=== PATIENT | female | born 1985 | race African-American/Black ===

== ENCOUNTER 2022-01-11 19:52 | Emergency (ER) | payer MEDICAID, SELFPAY ==
--- NOTE | ~2022-01-11 | XR_ITS ---
EXAMINATION: XR tibia fibula LT 2V INDICATION: Left leg pain TECHNIQUE: Two views of the left tibia and fibula are obtained. COMPARISON: None available FINDINGS: There is no fracture, dislocation, or subluxation. The bones, soft tissues, and joint space s are normal. IMPRESSION: 1. No acute osseous abnormality. Reviewed, dictated and finalized at location F.
--- NOTE | ~2022-01-11 | XR_ITS ---
EXAMINATION: XR lumbar spine 2-3V DATE: 01/11/2022 21:40 INDICATION: Low back pain TECHNIQUE: Anteroposterior and lateral views of the lumbar spine, and cone-down lateral view of the l umbosacral junction were obtained. COMPARISON: None. FINDINGS: There is no fracture, dislocation, or subluxation. The vertebral body heights, alignment, a nd intervertebral disc spaces are normal. The paravertebral soft tissues are unremarkable. IMPRESSION: 1. No acute osseous abnormality. Reviewed, dictated and finalized at location F.
--- NOTE | ~2022-01-11 | XR_ITS ---
EXAMINATION: XR foot LT min 3V DATE: 01/11/2022 21:40 INDICATION: Left foot pain TECHNIQUE: Dorsoplantar, lateral, and 2 oblique views of the left foot were obtained. COMPARISON: None. FINDINGS: There is no fracture, dislocation, or subluxation. There is mild osteoarthritis of multiple interphalangeal joints. The soft tissues are unremarkable. IMPRESSION: 1. No acute osseous abnormality. Reviewed, dictated and finalized at location F.
--- NOTE | ~2022-01-11 | CT_ITS ---
EXAMINATION: CT cervical spine wo con DATE: 01/11/2022 21:20 INDICATION: Neck pain TECHNIQUE: Computed tomography (CT) of the cervical spine was performed without intravenous contrast. The dose-length product (DLP) was 408.59 mGy-cm. Automated exposure control and iterative reconstruc tion technique were employed. COMPARISON: None FINDINGS: There is no fracture, dislocation, or subluxation. There is mild loss of intervertebral dis c space height at C5-6 with small anterior and posterior disc endplate osteophytes. The vertebral bod y heights are maintained. The odontoid is intact. The prevertebral soft tissues are normal. IMPRESSION: 1. Mild cervical spondylosis without acute findings. Reviewed, dictated and finalized at location F.
[2022-01-11 19:53] VITALS: BP 115/81; PULSE 75; RESP 16; TEMP 37.1; O2SAT 100
--- NOTE | 2022-01-11 20:43 | ED.LOWEXIN ---
HPI - Extremity Injury (Lower) General Chief Complaint: Extremity Injury, Lower Stated Complaint: LT LOWER LEG INJURY Time Seen by Provider: 01/11/22 20:03 Source: patient Mode of arrival: EMS History of Present Illness HPI Narrative: This is a 36-year-old female brought in by EMS, who presents complaining of left ankle pain, 6 out of 10, sharp, constant, after falling from approximately 3 to 4 feet. 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 Patient complains of immediate left ankle and left foreleg pain. She denies hitting her head or loss of consciousness. She states she neither stood nor walked after the incident at the recommendation of surrounding coworkers. She states she does not take anticoagulants, and has no chest pain or palpitations before or after the fall. Related Data Allergies Allergy/AdvReac Type Severity Reaction Status Date / Time No Known Allergies Allergy Verified 01/11/22 20:01 Review of Systems Review of Systems: CONSTITUTIONAL: Denies fever, chills, or sweats. EYES: Denies visual changes, redness, or discharge. CARDIOVASCULAR: Denies chest pain, palpitations, or edema. RESPIRATORY: Denies cough or dyspnea. GASTROINTESTINAL: Denies abdominal pain, nausea, vomiting, or diarrhea. GENITOURINARY: Denies dysuria or hematuria. SKIN: Denies rash or itching. MUSCULOSKELETAL: Left ankle pain, left foreleg pain, left lateral neck pain NEUROLOGIC: Denies headache, numbness, dizziness, or weakness. PSYCHIATRIC: Denies anxiety or depression. Exam Narrative: GENERAL: Well-appearing, well-nourished, and in no acute distress, wearing c-collar HEAD: Normocephalic, atraumatic. EYES: PERRLA and EOMI. ENT: Nares clear, no rhinorrhea or epistaxis. Mucous membranes moist. Oropharynx without tonsillar hypertrophy exudate or other lesions. NECK: Supple. Mild tenderness to palpation to the left paraspinal region. No midline tenderness or step-off, no adenopathy or masses. No carotid bruits or JVD CHEST: Clear to auscultation. No respiratory distress. No wheezes rales or rhonchi BACK: Tender to palpation over the lumbar spine without step-off or crepitus HEART: Regular rate and rhythm. No murmur heard. Normal peripheral pulses. ABDOMEN: Soft, nontender, nondistended, normal active bowel sounds. EXTREMITIES: Mild swelling noted to the lateral malleolus of the left ankle, tender to palpation in the same area, mild tenderness to palpation over the anterior aspect of the left foreleg, sensation intact, SKIN: Warm, dry, no rash. NEURO: No focal deficits. Alert and oriented x3. PSYCH: Normal mood and affect. Course Course Emergency Course: 22:10 - Imaging negative for fracture or dislocation. C-collar cleared by me. Will provide compression wrapping, crutch training and discharge with RICE therapy and NSAIDs. Vital Signs Vital signs: Vital Signs Temperature 98.8 F 01/11/22 19:53 Pulse Rate 75 01/11/22 19:53 Respiratory Rate 16 01/11/22 19:53 Blood Pressure 115/81 01/11/22 19:53 Pulse Oximetry 100 01/11/22 19:53 Oxygen Delivery Room Air 01/11/22 19:53 Temperature 98.8 F 01/11/22 19:53 Pulse Rate 75 01/11/22 19:53 Respiratory Rate 16 01/11/22 19:53 Blood Pressure 115/81 01/11/22 19:53 Pulse Oximetry 100 01/11/22 19:53 Oxygen Delivery Room Air 01/11/22 19:53 MDM - Extremity Injury (Lower) MDM Narrative Medical decision making narrative: Plan: test, imaging, pain control, reassess Imaging not concerning for fracture or dislocation in spine or extremities. C-collar cleared by me. Will discharge with rice, NSAIDs and a work note. Discussed findings and recommendations with the patient, who voices understanding and is comfortable with the plan. Discussed return emergency precautions including signs and symptoms of arrhythmia or spinal cord compression. All questions
[2022-01-11 21:35] LABS: Beta HCG Quantitative < 2.39 mIU/ML
[2022-01-11] MEDS: HYDROcodone/acetaminophen (*CRX) 5-325 MG TABLET 1 TAB PO (21:57)
[2022-01-11] MEDS: KETOROLAC 15 MG/ML VIAL (*BKC) IV PUSH (23:07)
[2022-01-11 23:41] VITALS: PULSE 74; RESP 18; O2SAT 98
== END 2022-01-11 23:43 | disposition home or self-care (01) ==
PROVIDERS: Emergency Provider Preventive Medicine Aerospace Medicine
DX: S93.402A Sprain of unspecified ligament of left ankle, initial encounter (principal); S96.912A Strain of unspecified muscle and tendon at ankle and foot level, left foot, initial encounter; S39.92XA Unspecified injury of lower back, initial encounter; S19.9XXA Unspecified injury of neck, initial encounter; W17.89XA Other fall from one level to another, initial encounter
CPT/HCPCS: 36415; 72100; 72125; 73590; 73630; 84702; 96374; 99284; A9270; J1885